=== PATIENT | male | born 1965 | race African-American/Black ===

== ENCOUNTER 2016-08-02 09:01 | Outpatient (CLI) | END 2016-08-02 09:02 | disposition home or self-care (01) | LOC: LAB 09:01 | PROVIDERS: ATTEND Nurse Practitioner Family | DX: E03.9 Hypothyroidism, unspecified (principal); Z12.5 Encounter for screening for malignant neoplasm of prostate | CPT/HCPCS: 36415; 84443 ==

== ENCOUNTER 2016-10-18 11:56 | Outpatient (CLI) | END 2016-10-18 11:57 | disposition home or self-care (01) | LOC: LAB 11:56 | PROVIDERS: ATTEND Nurse Practitioner Family | DX: E03.9 Hypothyroidism, unspecified (principal) | CPT/HCPCS: 36415; 84439; 84443; 84481 ==

== ENCOUNTER 2017-04-22 10:03 | Outpatient (CLI) ==
[2017-04-22 10:33] LABS: BASOPHILS % (AUTO) 0.6 % (0.0-3.0); EOSINOPHILS # (AUTO) 0.4 K/ul (0.0-0.7); EOSINOPHILS % (AUTO) 5.9 % (0.0-7.0); HEMATOCRIT 40.1 % (42.0-52.0); HEMOGLOBIN 13.8 g/dl (14.0-18.0); IMMATURE GRANULOCYTE % (AUTO) 0.2 % (0.0-5.0); LYMPHOCYTES # (AUTO) 2.2 K/uL (0.60-3.4); LYMPHOCYTES % (AUTO) 34.5 (10.0-50.0); MEAN CORPUSCULAR HEMOGLOBIN 32.5 pg (27.0-31.0); MEAN CORPUSCULAR HGB CONC 34.4 (31.8-35.4); MEAN CORPUSCULAR VOLUME 94.4 fl (80.0-94.0); MONOCYTES # (AUTO) 0.5 K/uL (0.4-2.0); NEUTROPHILS # (AUTO) 3.3 K/ul (2.0-6.9); NEUTROPHILS % (AUTO) 51.8; PLATELET COUNT 283 10^3/uL (140-440); RED BLOOD COUNT 4.25 10^6/ul (4.70-6.10)
[2017-04-22 11:14] LABS: ALBUMIN 3.4 g/dL (3.4-5.0); ALBUMIN/GLOBULIN RATIO 0.72; ANION GAP 12.1; BILIRUBIN,TOTAL 0.3 mg/dL (0.00-1.20); CALCIUM 9.1 mg/dL (8.2-10.2); CHOL/HDL RATIO 3.8 (4.5-6.4); POTASSIUM 4.1 mmol/L (3.5-5.1); TOTAL PROTEIN 8.1 g/dL (6.4-8.2)
== END 2017-04-22 10:04 | disposition home or self-care (01) ==
LOC: LAB 10:03
PROVIDERS: ATTEND Nurse Practitioner Family
DX: E03.9 Hypothyroidism, unspecified (principal); R73.9 Hyperglycemia, unspecified; Z12.5 Encounter for screening for malignant neoplasm of prostate
CPT/HCPCS: 36415; 80053; 80061; 83036; 84443; 85025

== ENCOUNTER 2017-07-23 09:09 | Outpatient (CLI) | END 2017-07-23 09:10 | disposition home or self-care (01) | LOC: RHC-LAB 09:09 | PROVIDERS: ATTEND Nurse Practitioner Family | DX: E11.9 Type 2 diabetes mellitus without complications (principal); E03.9 Hypothyroidism, unspecified | CPT/HCPCS: 36415; 83036; 84443 ==

== ENCOUNTER 2017-10-22 10:16 | Outpatient (CLI) | END 2017-10-22 10:17 | disposition home or self-care (01) | LOC: RHC-LAB 10:16 | PROVIDERS: ATTEND Nurse Practitioner Family | DX: E11.9 Type 2 diabetes mellitus without complications (principal); E03.9 Hypothyroidism, unspecified; Z12.5 Encounter for screening for malignant neoplasm of prostate | CPT/HCPCS: 36415; 80053; 80061; 83036; 84443; 85025 ==

== ENCOUNTER 2018-01-28 09:01 | Outpatient (CLI) | END 2018-01-28 09:02 | disposition home or self-care (01) | LOC: RHC-LAB 09:01 | PROVIDERS: ATTEND Nurse Practitioner Family | DX: E11.9 Type 2 diabetes mellitus without complications (principal); E03.9 Hypothyroidism, unspecified | CPT/HCPCS: 36415; 80053; 83036; 84443 ==

== ENCOUNTER 2018-06-05 08:21 | Outpatient (CLI) | END 2018-06-05 08:22 | disposition home or self-care (01) | LOC: RHC-LAB 08:21 | PROVIDERS: ATTEND Nurse Practitioner Family | DX: E03.9 Hypothyroidism, unspecified (principal) | CPT/HCPCS: 36415; 84439; 84443; 84481 ==

== ENCOUNTER 2018-08-27 08:24 | Outpatient (CLI) | END 2018-08-27 08:25 | disposition home or self-care (01) | LOC: RHC-LAB 08:24 | PROVIDERS: ATTEND Nurse Practitioner Family | DX: E11.9 Type 2 diabetes mellitus without complications (principal); E03.9 Hypothyroidism, unspecified | CPT/HCPCS: 36415; 80053; 83036; 84443; 85025 ==

== ENCOUNTER 2018-11-12 08:09 | Outpatient (CLI) | END 2018-11-12 08:10 | disposition home or self-care (01) | LOC: RHC-LAB 08:09 | PROVIDERS: ATTEND Nurse Practitioner Family | DX: E03.9 Hypothyroidism, unspecified (principal); R94.5 Abnormal results of liver function studies | CPT/HCPCS: 36415; 80074; 84443 ==